=== PATIENT | male | born 1960 | race Caucasian/White ===

== ENCOUNTER → 2022-09-17 14:14 | Outpatient (BNVA) | payer BC, SELFPAY | PROVIDERS: PCP Internal Medicine; Visit Provider Psychiatry & Neurology Neurology | DX: G43.109 Migraine with aura, not intractable, without status migrainosus (principal) ==

== ENCOUNTER 2022-09-21 13:04 | Outpatient (REF) | payer BC, SELFPAY ==
--- NOTE | ~2022-09-21 | US_ITS ---
EXAMINATION: US EXTRACRANIAL CAROTID DUPLEX, BILATERAL CLINICAL INFORMATION: Migraines with aura. COMPARISON: None. TECHNIQUE: Real-time ultrasound and Doppler techniques (integrating B-mode 2-D vascular images, Doppler spectral analysis and color-flow Doppler imaging) were utilized to interrogate the extracranial carotid arteries, the vertebral arteries and proximal subclavian arteries bilaterally. The degree of stenosis is determined by criteria similar to NASCET. FINDINGS: RIGHT SIDE: 1. There is no atherosclerotic plaque seen in the bifurcation/proximal ICA region. 2. The common carotid artery PSV proximally is 119 cm/s and distally 110 cm/s. 3. The proximal internal carotid artery velocities are 56 cm/s systolic and 19 cm/s diastolic. 4. The proximal external carotid artery PSV is 92 cm/s. 5. The vertebral artery shows antegrade flow. 6. The subclavian artery waveforms are normal. LEFT SIDE: 1. There is no atherosclerotic plaque seen in the bifurcation/proximal ICA region. 2. The common carotid artery PSV proximally is 135 cm/s and distally 110 cm/s. 3. The proximal internal carotid artery velocities are 72 cm/s systolic and 24 cm/s diastolic. 4. The proximal external carotid artery PSV is 90 cm/s. 5. The vertebral artery shows antegrade flow. 6. The subclavian artery waveforms are normal. US/US carotid duplex BI IMPRESSION: 1. RIGHT: Normal right internal carotid artery without atherosclerotic plaque or hemodynamically significant stenosis. 2. LEFT: Normal left internal carotid artery without atherosclerotic plaque or hemodynamically significant stenosis.
--- NOTE | ~2022-09-21 | XR_ITS ---
EXAMINATION: XR CERVICAL SPINE CLINICAL INFORMATION: Cervicalgia COMPARISON: None TECHNIQUE: 3 views of the cervical spine were obtained. FINDINGS: No acute fracture or subluxation. Vertebral body height and alignment maintained. Diffuse disc space narrowing throughout the cervical spine with endplate osteophytes present. Mild facet arthropathy. The atlantoaxial joint is well aligned. The dens is intact. The lung apices are clear. XR/XR cervical spine 3V IMPRESSION: Moderate degenerative changes throughout the cervical spine.
== END 2022-09-21 13:05 | disposition home or self-care (01) ==
LOC: HO.HMGCX 13:04
PROVIDERS: PCP Internal Medicine; Visit Provider Psychiatry & Neurology Neurology
DX: G43.109 Migraine with aura, not intractable, without status migrainosus (principal); H53.9 Unspecified visual disturbance; M54.2 Cervicalgia
CPT/HCPCS: 72040; 93880